=== PATIENT | female | born 1985 | race Caucasian/White ===

== ENCOUNTER → 2016-08-17 | Outpatient (CLI) | payer BC ==
[~2016-08-17] MED LIST: CYCL-319 PO; HYDR-3498 PO; IBUP-1542 PO
[2016-08-17 09:21] LABS: ADD SCAN DIFF NO
[2016-08-17 09:32] LABS: ADD UMIC YES; BASOPHILS % 0.2 % (0.0-2.0); EOSINOPHILS # 0.1 10^3/ul (0.0-0.5); EOSINOPHILS % 0.9 % (0.0-7.0); HEMATOCRIT 37.8 % (37.0-47.0); HEMOGLOBIN 12.5 g/dl (12.0-16.0); LYMPHOCYTES % 40.3 % (15.0-51.0); MEAN CORPUSCULAR HEMOGLOBIN 30.5 pg (29.0-33.0); MEAN CORPUSCULAR HGB CONC 33.1 g/dl (32.0-37.0); MEAN CORPUSCULAR VOLUME 92.2 fl (82.0-101.0); MEAN PLATELET VOLUME 9.5 fl (7.4-10.4); MONOCYTE # 0.6 10^3/ul (0.3-0.9); MONOCYTES % 5.6 % (0.0-11.0); NEUTROPHIL # 5.2 10^3/ul (1.6-7.5); NEUTROPHILS % 52.7 % (39.0-77.0); PLATELET COUNT 430 10^3/UL (140-415); RED CELL DISTRIBUTION WIDTH 13.5 % (11.5-14.5); URINE BILIRUBIN (Dip) 1+ (NEGATIVE); URINE BLOOD (Dip) 2+ (NEGATIVE); URINE COLOR YELLOW (YELLOW); URINE GLUCOSE (Dip) NEGATIVE (NEGATIVE); URINE KETONES (Dip) NEGATIVE (NEGATIVE); URINE LEUKOCYTE ESTERASE (Dip) NEGATIVE (NEGATIVE); URINE NITRITE (Dip) NEGATIVE (NEGATIVE); URINE TOTAL PROTEIN (Dip) TRACE (NEGATIVE); URINE UROBILINOGEN (Dip) 0.2 E.U./dL (0.1-1.0); WHITE BLOOD COUNT 9.8 10^3/ul (4.8-10.8)
[2016-08-17 09:50] LABS: ICTOTEST NEGATIVE (NEGATIVE); SQUAMOUS EPITHELIAL CELL,UR MODERATE
[2016-08-18 13:29] LABS: RUBELLA ANTIBODY - IGG 9.83 index
== END | disposition home or self-care (01) ==
LOC: LAB 08:58
PROVIDERS: ATTEND Obstetrics & Gynecology
DX: Z32.00 Encounter for pregnancy test, result unknown (principal)
CPT/HCPCS: 81001; 81003; 84439; 84443; 84481; 85025; 86592; 86703; 86762; 86803; 86850; 86900; 86901; 87340

== ENCOUNTER → 2016-09-28 | Outpatient (CLI) | payer BC ==
[2016-09-28 15:58] LABS: ALBUMIN 3.5 g/dl (3.3-4.9)
[2016-09-28 16:00] LABS: CREATININE 0.45 mg/dl (0.44-1.00)
[2016-09-28 16:01] LABS: ALBUMIN/GLOBULIN RATIO 1.02; CALCIUM 9.2 mg/dl (8.4-10.2); TOTAL PROTEIN 6.9 g/dl (6.1-8.1)
[2016-09-30 18:13] LABS: ANA SCREEN POSITIVE (NEGATIVE)
== END | disposition home or self-care (01) ==
LOC: LAB 15:31
PROVIDERS: ATTEND Obstetrics & Gynecology
DX: Z34.90 Encounter for supervision of normal pregnancy, unspecified, unspecified trimester (principal); R76.0 Raised antibody titer
CPT/HCPCS: 80053; 86038

== ENCOUNTER → 2016-12-15 | Outpatient (CLI) | payer BC ==
[2016-12-15 06:34] LABS: ALBUMIN 3.7 g/dl (3.3-4.9); TOTAL PROTEIN 6.8 g/dl (6.1-8.1)
[2016-12-18 12:10] LABS: CHENODEOXYCHOLIC ACID <0.5 umol/L (< OR = 3.1); CHOLIC ACID 1.2 umol/L (< OR = 1.8); DEOXYCHOLIC ACID <0.5 umol/L (< OR = 2.4); TOTAL BILE ACIDS <1.5 umol/L (< OR = 6.8)
== END | disposition home or self-care (01) ==
LOC: LAB 05:26
PROVIDERS: ATTEND Obstetrics & Gynecology Obstetrics
DX: K83.1 Obstruction of bile duct (principal)
CPT/HCPCS: 80076; 83789

== ENCOUNTER → 2016-12-17 | Outpatient (CLI) | payer BC ==
[2016-12-17 13:06] LABS: ADD SCAN DIFF NO
[2016-12-17 13:13] LABS: BASOPHILS % 0.1 % (0.0-2.0); EOSINOPHILS % 0.3 % (0.0-7.0); HEMATOCRIT 34.9 % (37.0-47.0); HEMOGLOBIN 11.6 g/dl (12.0-16.0); LYMPHOCYTES # 2.1 10^3/ul (0.8-2.9); LYMPHOCYTES % 21.3 % (15.0-51.0); MEAN CORPUSCULAR HEMOGLOBIN 30.9 pg (29.0-33.0); MEAN CORPUSCULAR HGB CONC 33.2 g/dl (32.0-37.0); MEAN CORPUSCULAR VOLUME 93.1 fl (82.0-101.0); MEAN PLATELET VOLUME 9.6 fl (7.4-10.4); MONOCYTE # 0.6 10^3/ul (0.3-0.9); MONOCYTES % 5.6 % (0.0-11.0); NEUTROPHIL # 7.3 10^3/ul (1.6-7.5); NEUTROPHILS % 72.2 % (39.0-77.0); PLATELET COUNT 331 10^3/UL (140-415); RED BLOOD COUNT 3.75 10^6/ul (4.20-5.40); RED CELL DISTRIBUTION WIDTH 13.4 % (11.5-14.5)
[2016-12-17 13:59] LABS: THYROID STIMULATING HORMONE 1.99 MIU/L (0.465-4.680)
== END | disposition home or self-care (01) ==
LOC: LAB 11:51
PROVIDERS: ATTEND Obstetrics & Gynecology
DX: O24.410 Gestational diabetes mellitus in pregnancy, diet controlled (principal)
CPT/HCPCS: 82950; 84443; 85025

== ENCOUNTER 2017-01-06 23:17 | Outpatient (CLI) | payer BC ==
[~2017-01-06] VITALS: Ht 157.5 cm; Wt 94.5 kg
[2017-01-06 23:48] VITALS: Ht 157.5 cm; Wt 94.5 kg
[2017-01-06 23:49] VITALS: BP 128/76; PULSE 107; RESP 18
[2017-01-06] MEDS ORDERED: PRENAT PO (23:53)
[2017-01-06] MEDS ORDERED: FERR325C PO (23:53)
[2017-01-07 01:01] LABS: ADD UMIC YES; UR ASCORBIC ACID NEGATIVE (NEGATIVE); UR BACTERIA FEW /HPF (NONE SEEN); UR BILIRUBIN (Dip) NEGATIVE (NEGATIVE); UR BLOOD (Dip) 1+ mg/dL (NEGATIVE); UR CLARITY CLEAR (CLEAR); UR COLOR YELLOW (YELLOW); UR GLUCOSE (Dip) NEGATIVE (NEGATIVE); UR KETONES (Dip) NEGATIVE (NEGATIVE); UR LEUKOCYTE ESTERASE (Dip) NEGATIVE Leu/ul (NEGATIVE); UR NITRITE (Dip) NEGATIVE (NEGATIVE); UR RBC 1 /HPF (0-5); UR SPECIFIC GRAVITY (Dip) 1.012 (1.003-1.030); UR SQUAMOUS EPITHELIAL CELL FEW /HPF (FEW); UR TOTAL PROTEIN (Dip) NEGATIVE (NEGATIVE); UR UROBILINOGEN (Dip) NEGATIVE (NEGATIVE)
--- NOTE | 2017-01-07 01:31 | RADRPT ---
PROCEDURE: Obstetrical ultrasound, limited. CLINICAL INDICATION: Pelvic pain. TECHNIQUE: Multiple sonographic images of the pelvis were obtained using transabdominal technique . Images were obtained with adame scale and color Doppler. The images were reviewed on a PACS works tation. COMPARISON: No prior studies are available for comparison. FINDINGS: There is a single living intrauterine gestation with the fetus in a breech presentation. hear t tones of 131 beats per minute are identified. The placenta is anterior in location, grade 1-2. Th ere is no evidence of placenta previa or abruption. Measurements were made in order to determine age. The results are as follows: BPD =8.59 cm HC =31.62 cm AC =30.43 cm FL =6.54 cm. Estimated gestational age of approximately 34 weeks and 4 days. The estimated date of delivery is 02/14/2017. The EFW = 2406 +/- 361 grams. Estimated weight percentage equals >97%. IMPRESSION: Single viable intrauterine gestation of approximately 34 weeks and 4 days, with an ultrasound LEXI of 02/14/2017. .Rome Soria MD, MD Date Time Electronically viewed and signed by .Rome Soria MD, MD on 01/07/2017 01:30 .T/
--- NOTE | 2017-01-07 01:32 | RADRPT ---
PROCEDURE: Biophysical profile. CLINICAL INDICATION: Pelvic pain. TECHNIQUE: Multiple sonographic images of the pelvis were obtained with transabdominal technique. Transvaginal evaluation of the cervix was also performed. COMPARISON: No prior studies are available for comparison. FINDINGS: There is a single living intrauterine gestation with the fetus in a breech position. The placenta i s anterior in location, grade 1 to 2. heart tones of 139 beats per minute are identified. The re is normal amniotic fluid volume with an ADRIANA of 14.1 cm. The cervix is closed measuring 4.4 cm. breathing movements = 2 Gross body movements = 2 tone = 2 Qualitative AFV = 2 IMPRESSION: Biophysical profile 8 out of 8. .Rome Soria MD, Date Time Electronically viewed and signed by .Rome Soria MD, on 01/07/2017 01:31 .T/
--- NOTE | 2017-01-07 02:59 | TRIAGE ---
OB Triage Datetime Report Generated by CPN: 01/07/2017 02:59 Datetime: 01/07/2017 01:55 Stage of : OB Triage Stage of : OB Triage Labor Evaluation Frequency: none Monitor Mode: External Pattern: Normal: <= 5 Contractions in 10 Minutes Resting Tone [place]: Relaxed Heart Rate FHR Baseline Rate: 130 Monitor Mode: External US Variability: Moderate 6-25 bpm Accelerations: Prolonged Decelerations: None Category: Category I Pain Assessment Pain Scale: 0 Pain Presence: None/Denies Pain Type: N/A Pain Relief Measures: Comfort Measures Datetime: 01/07/2017 01:48 Stage of : OB Triage Datetime: 01/07/2017 01:21 Stage of : OB Triage Monitor Mode: External US Datetime: 01/07/2017 01:20 Stage of : OB Triage Monitor Mode: External US Datetime: 01/07/2017 01:01 Stage of : OB Triage Labor Evaluation Frequency: NONE Monitor Mode: External Pattern: Normal: <= 5 Contractions in 10 Minutes Resting Tone [place]: Relaxed Heart Rate FHR Baseline Rate: 130 Monitor Mode: External US Variability: Moderate 6-25 bpm Accelerations: 15X15 Decelerations: None Category: Category I Pain Assessment Pain Scale: 0 Pain Presence: None/Denies Pain Type: N/A Pain Relief Measures: Comfort Measures Datetime: 01/07/2017 00:49 Stage of : OB Triage Monitor Mode: External Monitor Mode: External US Datetime: 01/07/2017 00:19 Stage of : OB Triage Vaginal Exam Pool: Positive Datetime: 01/06/2017 23:58 Stage of : OB Triage Assessment Type: Triage Maternal Assessment Level of Consciousness: Fully Conscious DTR's/Clonus: DTRs 2+; No Clonus Headache: Denies Blurred Vision: No Respiratory Effort: Unlabored; Regular Rhythm; Equal Expansion Breath Sounds, Left: Clear and Equal Breath Sounds, Right: Clear and Equal Nausea/Vomiting: Denies RUQ Epigastric Pain: Denies Lower Extremities Edema: None Degree: None Upper Extremities Edema: None Degree: None Facial Edema: None Temperature Route: Oral Fall Risk Assessment History of Falling: (0) No Secondary Diagnosis: (0) No Ambulatory Aid: (0) Bedrest/Nurse Assist IV Therapy: (0) No Gait: (0) Normal/Bedrest/Immobile Mental Status: (0) Oriented to Own Ability Fall Score: 0 Fall Risk Score Definition: No Risk: No action required Labor Evaluation Frequency: NONE Monitor Mode: External Pattern: Normal: <= 5 Contractions in 10 Minutes Resting Tone [place]: Relaxed Heart Rate FHR Baseline Rate: 135 Monitor Mode: External US Variability: Moderate 6-25 bpm Accelerations: 15X15 Decelerations: None Category: Category I Pain Assessment Pain Scale: 0 Pain Presence: None/Denies Pain Type: N/A Pain Relief Measures: Comfort Measures Datetime: 01/06/2017 23:54 Time of Arrival: 01/06/2017 23:20 EGA: 31.6 Arrived By: Ambulatory Arrived From: Other Unit in Hospital Movement: Present Contractions: Denies/Absent Rupture of Membranes: Unsure Vaginal Discharge: Denies Recent Sexual Intercouse: Yes Abdominal Trauma: Not Applicable Patient Complaints: Other Additional Patient Complaints: LEAKING ON Wednesday01/03/17 @ 1600 Time Provider Notified: 01/07/2017 00:05 Provider Notified: Initial Plan: [facility]
--- NOTE | 2017-01-07 06:14 | PN ---
Triage Information Date/Time January 07, 2017 : 2 Para: 0 Diabetes: none Hypertention: none Additional information 31-year-old with IUP at 31 weeks and 6 days presented with complaint of leaking of fluid. Denies any decreased movement uterine contractions denies any compensation during her course.. Objective Vital Signs Date Time Temp Pulse Resp B/P Pulse Ox O2 Delivery O2 Flow Rate FiO2 01/06/17 23:49 98.2 107 18 128/76 Room Air Heart Rate: 130's Contractions: None Exam General appearance: Alert and oriented 4. Does not appear to be in any acute distress Abdomen: Soft, gravid, fundal height consistent with gestational age, nontender NST: Category 1 Speculum examination: Negative pooling negative nitrazine, R OM test negative, ADRIANA: Normal Cervical length: 4.4 cm Results/Medications Results 24 hrs Laboratory Tests Test 01/06/17 23:30 01/07/17 00:20 Urine Color YELLOW Urine Clarity CLEAR Urine pH 7.0 Urine Specific [place] 1.012 Urine Ketones NEGATIVE Urine Nitrite NEGATIVE Urine Bilirubin NEGATIVE Urine Urobilinogen NEGATIVE Urine Leukocyte Esterase NEGATIVE Urine Microscopic RBC 1 Urine Microscopic WBC 0 Urine Squamous Epithelial Cells FEW Urine Bacteria FEW A Urine Hemoglobin 1+ H Urine Glucose NEGATIVE Urine Total Protein NEGATIVE Membranes Rupture NEGATIVE Assessment/Plan IUP at 31 weeks and 6 days No evidence of PPROM or labor adequate ADRIANA Likely urinary leak labor precaution and kick count discussed Follow-up with primary OB in 24-48 hours Return to triage as needed any other problem FUNMI MAYBERRY MD Jan 07, 2017 06:14
== END 2017-01-07 02:05 | disposition home or self-care (01) ==
LOC: OBT 23:17 → L-D 23:20 → OBT 01-07 02:05
PROVIDERS: ATTEND Obstetrics & Gynecology
DX: O41.93X0 Disorder of amniotic fluid and membranes, unspecified, third trimester, not applicable or unspecified (principal); Z3A.31 31 weeks gestation of pregnancy
CPT/HCPCS: 76815; 76817; 76818; 81001; 84112; G0463

== ENCOUNTER → 2017-01-09 | Outpatient (CLI) | payer BC ==
[~2017-01-09] MED LIST changes: -CYCL-319 PO; +FERR325C PO; -HYDR-3498 PO; -IBUP-1542 PO; +PRENAT PO
== END | disposition home or self-care (01) ==
LOC: LAB 09:42
PROVIDERS: ATTEND Obstetrics & Gynecology
DX: O24.419 Gestational diabetes mellitus in pregnancy, unspecified control (principal); Z3A.00 Weeks of gestation of pregnancy not specified
CPT/HCPCS: 82951

== ENCOUNTER 2017-03-02 17:13 | Inpatient (IN) | payer BC ==
[~2017-03-02] VITALS: Ht 154.9 cm; Wt 102.7 kg
[2017-03-02 17:59] VITALS: Ht 154.9 cm; Wt 102.7 kg
[2017-03-02 18:00] VITALS: BP 140/84; PULSE 82; RESP 20
[2017-03-02] MEDS ORDERED: LACTATED RINGER'S 1,000 ML IV SCH (18:05)
[2017-03-02] MEDS ORDERED: LACTATED RINGER'S 1,000 ML IV ONE (18:20)
[2017-03-02] MEDS ORDERED: OXYTOCIN 30 UNITS/LR 500 ML IV SCH (18:30)
[2017-03-02] MEDS ORDERED: METHYLERGONOVINE 0.2 MG INJ IM PRN ×2 (18:30→23:00)
[2017-03-02] MEDS ORDERED: MISOPROSTOL 200 MCG TAB PR PRN ×2 (18:30→23:00)
[2017-03-02] MEDS ORDERED: CARBOPROST 250 MCG INJ IM PRN ×2 (18:30→23:00)
[2017-03-02] MEDS ORDERED: METOCLOPRAMIDE 10 MG INJ IV ONE (18:30)
[2017-03-02] MEDS ORDERED: CEFAZOLIN 2 GM/50 ML (PMX) 50 ML IV SCH (18:30)
[2017-03-02] MEDS ORDERED: OXYTOCIN 30 UNITS/LR 500 ML IV PRN ×2 (18:30→23:00)
[2017-03-02] MEDS ORDERED: CITRIC ACID/NA CITRATE 30 ML CUP PO ONE (18:30)
[2017-03-02] MEDS ORDERED: FAMOTIDINE 20 MG INJ IV ONE (18:30)
[2017-03-02 18:48] LABS: BASOPHILS % 0.1 % (0.0-2.0); EOSINOPHILS # 0.1 10^3/ul (0.0-0.5); EOSINOPHILS % 0.6 % (0.0-7.0); HEMATOCRIT 36.6 % (37.0-47.0); HEMOGLOBIN 12.1 g/dl (12.0-16.0); LYMPHOCYTES # 2.9 10^3/ul (0.8-2.9); LYMPHOCYTES % 33.2 % (15.0-51.0); MEAN CORPUSCULAR HEMOGLOBIN 30.1 pg (29.0-33.0); MEAN CORPUSCULAR HGB CONC 33.1 g/dl (32.0-37.0); MEAN PLATELET VOLUME 11.1 fl (7.4-10.4); MONOCYTE # 0.6 10^3/ul (0.3-0.9); MONOCYTES % 7.2 % (0.0-11.0); NEUTROPHIL # 5.1 10^3/ul (1.6-7.5); NEUTROPHILS % 58.6 % (39.0-77.0); PLATELET COUNT 292 10^3/UL (140-415); RED BLOOD COUNT 4.02 10^6/ul (4.20-5.40); RED CELL DISTRIBUTION WIDTH 15.1 % (11.5-14.5); WHITE BLOOD COUNT 8.7 10^3/ul (4.8-10.8)
[2017-03-02 19:04] LABS: INR 0.85; PROTIME 11.6 Sec (12.2-14.2); PT RATIO 0.9
[2017-03-02 19:05] LABS: PARTIAL THROMBOPLASTIN TIME 25.9 Sec (25.0-35.0)
[2017-03-02] MEDS ORDERED: FENTAnyl 50 MCG/ML VIAL ONE (20:53)
[2017-03-02] MEDS ORDERED: morphine SULFATE/PF (10 MG/10 ML) INJ ONE (20:53)
[2017-03-02] MEDS ORDERED: PHENYLephrine (100 MCG/ML) 5ML SYG ONE ×2 (21:07→21:36)
[2017-03-02] MEDS ORDERED: FENTAnyl 50 MCG/ML VIAL IV PRN (21:30)
[2017-03-02] MEDS ORDERED: MEPERIDINE 25 MG INJ IV PRN (21:30)
[2017-03-02] MEDS ORDERED: KETOROLAC 30 MG INJ IV PRN (21:30)
[2017-03-02] MEDS ORDERED: PROCHLORPERAZINE 10 MG INJ IV PRN (21:30)
[2017-03-02] MEDS ORDERED: DIPHENHYDRAMINE 50 MG INJ IV PRN ×2 (21:30→23:00)
[2017-03-02] MEDS ORDERED: ONDANSETRON 4 MG INJ IV PRN ×2 (21:30→23:00)
[2017-03-02] MEDS ORDERED: ONDANSETRON 4 MG INJ ONE (21:31)
[2017-03-02] MEDS ORDERED: OXYTOCIN 30 UNITS/LR 500 ML IV ONE (21:36)
[2017-03-02] MEDS ORDERED: EPHEDrine SULFATE 50 MG/5 ML SYG ONE (21:36)
--- NOTE | 2017-03-02 22:50 | HP ---
Date/Time of Note Date/Time of Note DATE: 03/02/17 TIME: 22:45 OB - History Hx of Present Free Text/Dictation 31 y.o. A1 with an IUP at 39w 5d, baby is over 8#, cervix is thick, closed and the head is floating and the patient is requesting an elective . Last Menstrual Period: May 28, 2016 Estimated Due Date: Mar 04, 2017 : 2 Para: 0 Spontaneous : 1 Care: Good Care Ultrasounds: Normal mid trimester US Obstetrical Complications: Gestational Diabetes (diet controlled only) Medical Complications: Respiratory (asthma), Gastrointestinal (GERD, gallstones ) Past Family/Social History * Past Medical, Surgical, Family and Obstetric Histories reviewed from chart. Blood Type: A+ Rubella: immune RPR/VDRL: Negative GBS Status: Negative HBsAG: Negative OB Admission Exam Vital Signs Vital Signs Vital Signs Date Time Temp Pulse Resp B/P Pulse Ox O2 Delivery O2 Flow Rate FiO2 03/02/17 18:00 98.9 82 20 140/84 Room Air Physical Exam HEENT: WNL Heart: Rhythm Normal Lungs: Clear Abdomen: WNL Extremities: Edema (2+) Reflexes: Normal Cervical Dilatation: None Effacement: 0% Station: Ballotable Membranes: Intact Heart Rate: 150's Accelerations: Accelerations Present Decelerations: No Decelerations Varibility: Moderate Contractions on Admission: >10 Minutes Apart Last 72 hours Lab Results CBC & BMP 03/02/17 18:10 OB Assessment/Plan Reason for admission: section Other Assessment: Elective Plan: Section VIVIANE LEONG MD Mar 02, 2017 22:50
[2017-03-02] MEDS: HYDROmorphONE (0.2 MG/ML) 10ML SYG IV PRN (22:55)
[2017-03-02] MEDS ORDERED: NALOXONE (0.4 MG/ML) INJ IV PRN (23:00)
[2017-03-02] MEDS ORDERED: LANOLIN 7 GM TUBE TOP PRN (23:00)
[2017-03-02] MEDS ORDERED: HYDROmorphONE 1 MG/ML SYG IV PRN (23:00)
[2017-03-02] MEDS ORDERED: ZOLPIDEM 5 MG TAB PO PRN (23:00)
[2017-03-02] MEDS ORDERED: NALBUPHINE HCL (10 MG/1 ML) INJ IV PRN (23:00)
--- NOTE | 2017-03-02 23:04 | OPR ---
Operative Report Planned Procedure Procedure date Mar 02, 2017 Procedure(s) Primary section Performed by see signature line Assisting provider: EDELMIRA SPAIN MD Anesthesiologist: BOBBY CHAMORRO MD Anesthesia Type: spinal Procedure Description Under satisfactory spinal anesthesia, the patient was prepped and draped and placed in a supine position, tilted to the left. A Pfannenstiel incision was made, carried through the subcutaneous tissue. Bleeders were brought under control with electrocautery. The fascia was incised to the length of the incision. The rectus muscles were from the overlying fascia, divided midline. The peritoneum was exposed, and entered using the surgeon's fingers. Exploration of abdomen revealed gravid uterus. The bladder flap was developed. A transverse incision was made in the lower segment of the uterus. The amniotic sac ruptured. Clear amniotic fluid noted. The head was elevated through the incision and, with gentle fundal pressure, the baby was easily delivered. Nasal oropharyngeal suction was performed. The baby was brought to the team for immediate attention. The placenta was delivered manually intact. The uterus was wrapped in a moist lap and then the uterine cavity was cleaned with dry sponge. The uterus was closed in 2 layers using #1 chromic suture in continuous locking fashion. Excellent hemostasis was noted and the uterus was replaced back into the abdomen. The peritoneal cavity was irrigated with warm saline. Sponge, needle and instrument count were reported to be correct. The abdominal peritoneum was closed with 2-0 chromic.continuously. The rectus muscles were approximated with the same suture. The fascia was closed with 0 Vicryl from each lateral edge to the midline with overlap at the midline , the subcutaneous layer was closed with 2-0 chromic and the skin was then closed with 3-0 Monocryl in a subcuticular stitch. Estimated blood loss 500 mL. Urine was noted to be clear. The final count was again complete. Post-Procedure Post-procedure diagnosis Elective term section. Findings: Viable baby girl weighing 3750 grams, or 8# 4 oz, 19.5" long and with Apgars of 8/9. Estimated blood loss: other (500 cc) Specimen(s): no Grafts/Implants: no Complication(s): no Pt Condition post procedure: stable Disposition: PACU Physician Certification I, the undersigned physician, hereby certify that I have discussed the procedure described in this consent form with this patient (or the patient's legal area representative), including: * The risk and benefits of the procedure; * Any adverse reactions that may reasonably be expected to occur; * Any alternative efficacious methods of treatment which may be medically viable ; * The potential problems that may occur during recuperation; * Potential for blood transfusion and associated risks/benefits; and * Any research or economic interest I may have regarding this treatment. I further certify that the patient/legally responsible person was encouraged to ask question and that all questions were answered. VIVIANE LEONG MD Mar 02, 2017 23:04
[2017-03-03] VITALS (7 sets, daily range): BP systolic 116–123; BP diastolic 66–74; PULSE 72–107; RESP 16–19
[2017-03-03] MEDS: HYDROmorphONE (0.2 MG/ML) 10ML SYG IV PRN (00:55)
[2017-03-03] MEDS: LACTATED RINGER'S 1,000 ML IV SCH ×3 (01:20→14:02)
[2017-03-03] MEDS: HYDROmorphONE 1 MG/ML SYG IV PRN ×5 (03:53→20:14)
[2017-03-03] MEDS: KETOROLAC 30 MG INJ IV PRN ×3 (06:00→17:47)
[2017-03-03 11:27] LABS: BASOPHILS % 0.2 % (0.0-2.0); EOSINOPHILS % 0.3 % (0.0-7.0); HEMATOCRIT 31.4 % (37.0-47.0); LYMPHOCYTES # 2.9 10^3/ul (0.8-2.9); LYMPHOCYTES % 26.5 % (15.0-51.0); MEAN CORPUSCULAR HEMOGLOBIN 29.8 pg (29.0-33.0); MEAN CORPUSCULAR HGB CONC 31.8 g/dl (32.0-37.0); MEAN CORPUSCULAR VOLUME 93.5 fl (82.0-101.0); MEAN PLATELET VOLUME 10.6 fl (7.4-10.4); MONOCYTE # 0.8 10^3/ul (0.3-0.9); MONOCYTES % 7.2 % (0.0-11.0); NEUTROPHIL # 7.2 10^3/ul (1.6-7.5); NEUTROPHILS % 65.3 % (39.0-77.0); PLATELET COUNT 220 10^3/UL (140-415); RED BLOOD COUNT 3.36 10^6/ul (4.20-5.40); RED CELL DISTRIBUTION WIDTH 15.1 % (11.5-14.5); WHITE BLOOD COUNT 11.1 10^3/ul (4.8-10.8)
[2017-03-03] MEDS ORDERED: OXYCODONE/ACETAMINOPHEN (5/325) TAB PO PRN (21:05)
[2017-03-03] MEDS: IBUPROFEN 800 MG TAB PO SCH (21:52)
--- NOTE | 2017-03-03 23:44 | QN ---
Documentation Comment Progress Note POD #1 Pt doing very well and has excellent pain management. + flatus. Tolerating a regular diet. No BM yet. Has already gotten up to a chair. Is well. T=98.5 BP 120/68 Fundus firm and at the umbilicus. Dressing is clean, dry and intact. Lochia minimal. Ext 2+ edema. Flores in place. A: S/P primary . Stable. P: Continue care. D/C flores in AM, per pt request. Advance pain meds as ordered. VIVIANE LEONG MD Mar 03, 2017 23:44
[2017-03-04] MEDS: LACTATED RINGER'S 1,000 ML IV SCH (00:44)
[2017-03-04] MEDS: OXYCODONE/ACETAMINOPHEN (5/325) TAB PO PRN ×3 (01:53→10:11)
[2017-03-04] MEDS: IBUPROFEN 800 MG TAB PO SCH ×3 (05:30→22:03)
[2017-03-04 05:41] VITALS: BP 116/63; PULSE 88; RESP 19
[2017-03-04 08:05] VITALS: BP 119/79; PULSE 91; RESP 20
[2017-03-04] MEDS ORDERED: HYDROCODONE/APAP (5/325) TAB PO PRN (14:30)
[2017-03-04] MEDS: HYDROCODONE/APAP (5/325) TAB PO PRN ×2 (14:48→20:57)
[2017-03-04 16:30] VITALS: BP 138/95; PULSE 88; RESP 16
[2017-03-04 17:00] VITALS: BP 133/80
[2017-03-04 20:57] VITALS: BP 139/89; PULSE 92; RESP 18
--- NOTE | 2017-03-04 21:19 | QN ---
Documentation Comment POD #2 Pt feeling well with better pain control after the change to [place]. Had a shower and dressing was removed. 133/80 T=98.9 Inc: C/D/I. Lochia minimal Ext NT, no edema. P: Continue care and plan d/c for tomorrow. VIVIANE LEONG MD Mar 04, 2017 21:19
[2017-03-05] MEDS: HYDROCODONE/APAP (5/325) TAB PO PRN ×3 (01:12→09:06)
[2017-03-05 03:58] VITALS: BP 134/76; PULSE 82; RESP 18
[2017-03-05] MEDS: IBUPROFEN 800 MG TAB PO SCH ×2 (06:09→12:14)
[2017-03-05] MEDS ORDERED: DIPHTH/TET/ACEL PERTUSS (ADULT) 0.5 ML VIAL IM* ONE (09:00)
[2017-03-05 09:06] VITALS: BP 130/73; PULSE 18; PULSE 78; RESP 20
--- NOTE | 2017-03-05 12:30 | PD.PPDC ---
CUTTER HAND Discharge Instruction Condition Patient Condition: Good Diet Diet: Resume Regular Diet Activity/Restrictions Activity: Bedrest May be up to bathroom May be up for meals May Shower Restrictions: No Exercising No Lifting No Driving Minimize Walking Minimize Stair-climbing No Sexual Activity Nothing in the Vagina No [place] No Tampons, douche Wound/Drain Care Instructions Wound/Drain Care Instructions: Remove Steri Strips in 2 weeks Keep clean and dry Follow-up Follow-up with Physician: 2 Return to clinic for TECHNOLOGY [facility] TEACHER Instructions: Fever greater than 101 Chills Worsening abdominal pain Excessive Vaginal Bleeding OB Instructions: Breast Tenderness Depression Surgical Instructions: Incisional Drainage Incisional Redness VIVIANE LEONG MD Mar 05, 2017 12:30
[2017-03-05] MEDS ORDERED: IBUP800T25 PO (12:32)
[2017-03-05] MEDS ORDERED: HYDR-3498 PO (12:32)
--- NOTE | 2017-03-05 12:34 | DS ---
Date/Time of Note Date/Time of Note DATE: 03/05/17 TIME: 12:33 Obstetrical Discharge Record Final Diagnosis Final Diagnosis: Term delivered Other Final Diagnosis elective Section Section: Primary Primary Indication Elective Complications Gestational Diabetes Augmentation: No Induction: No Condition on Discharge Physical Assessment Last Vitals: T=98.3 BP 130/73 Voiding: Yes Bowel Movement: Yes Breast: Filling Fundus: Firm Abdomen and Incision: Clean, intact and dry with steristrips in place. Calf Tenderness: No Patient Condition: Good VIVIANE LEONG MD Mar 05, 2017 12:34
== END 2017-03-05 12:55 | disposition home or self-care (01) | DRG 766 ==
LOC: L-D 17:13 → PP1 03-03 01:10 → EDSTATUS 03-04 17:12
PROVIDERS: ADMIT Obstetrics & Gynecology; ATTEND Obstetrics & Gynecology
PROC: 10D00Z1 Extraction of Products of Conception, Low, Open Approach (ICD-10-PCS; principal; 2017-03-02 21:30)
DX: O32.4XX0 Maternal care for high head at term, not applicable or unspecified (principal); O24.420 Gestational diabetes mellitus in childbirth, diet controlled; Z3A.39 39 weeks gestation of pregnancy; Z37.0 Single live birth
CPT/HCPCS: 85025; 85610; 85730; 86592; 86850; 86900; 86901; 90715; 94760; 99464; J0690; J1170; J1200; J1885; J2175; J2274; J2370; J2405; J2590; J2765; J3010; J7120

== ENCOUNTER 2018-01-05 23:41 | Emergency (ER) | END 2018-01-06 01:36 | disposition home or self-care (01) ==

== ENCOUNTER 2018-08-09 01:35 | Emergency (ER) | payer BC ==
[~2018-08-09] VITALS: Ht 156.2 cm; Wt 95.1 kg
[~2018-08-09 01:35] MED LIST changes: +HYDR-3601 PO; +IBUP-1542 PO; +IBUP-1544 PO; +TRAM50TA2 PO
[2018-08-09 01:36] VITALS: Ht 156.2 cm; Wt 95.1 kg
[2018-08-09] MEDS ORDERED: ONDANSETRON 4 MG INJ IV STA (02:02)
[2018-08-09] MEDS ORDERED: KETOROLAC 30 MG INJ IV STA (02:02)
[2018-08-09] MEDS ORDERED: IBUP-1542 PO (04:07)
[2018-08-09] MEDS ORDERED: HYDR-4011 PO (04:08)
[2018-08-09] MEDS ORDERED: ONDA4TAB14 PO (04:08)
--- NOTE | 2018-08-09 04:14 | ERD ---
ER Documentation Chief Complaint Chief Complaint RUQ AP [id number]. +NAUSEA PATIENT IS L&D NURSE UPSTAIRS. HPI Patient is a 33-year-old female with a history of gallstones presents ER for concerns of right upper quadrant pain times 15 minutes. 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 She states the pain became worse after eating. Patient reports nausea and vomiting. Patient denies any fevers or chills. Patient denies any dysuria, frequency, urgency or hematuria. Patient states she is having menstrual spotting currently. Patient denies any chest pain, shortness of breath, left upper extremity pain or LOC. ROS All systems reviewed and are negative except as per history of present illness. Medications Home Meds Active Scripts Ondansetron (Ondansetron Odt) 4 Mg Tab.rapdis, 4 MG PO Q6H PRN for NAUSEA AND/OR VOMITING, #10 TAB Prov:ROYCE MARTINEZ PA-C 08/09/18 Hydrocodone/Acetaminophen ([place] 5-325 Tablet) 1 Each Tablet, 1 TAB PO Q6H PRN for PAIN, #7 TAB Prov:ROYCE MARTINEZ PA-C 08/09/18 Ibuprofen* (Motrin*) 600 Mg Tab, 600 MG PO Q6, #30 TAB Prov:ROYCE MARTINEZ PA-C 08/09/18 Tramadol HCl (Tramadol HCl) 50 Mg Tablet, 50 MG PO Q6 PRN for SEVERE PAIN LEVEL 7-10, #20 TAB Prov:ALEN LOPEZ NP 01/06/18 Ibuprofen* (Motrin*) 600 Mg Tab, 600 MG PO Q6H PRN for PAIN AND OR ELEVATED TEMP, #30 TAB Prov:ALEN LOPEZ NP 01/06/18 Ibuprofen* (Ibuprofen*) 800 Mg Tablet, 800 MG PO Q8, #30 TAB Prov:VIVIANE LEONG MD 03/05/17 Hydrocodone Bit-Acetaminophen (Hydrocodone Bit-APAP) 5-325MG Tablet, 1 TAB PO Q4H PRN for PAIN, #30 TAB Prov:VIVIANE LEONG MD 03/05/17 Reported Medications Ferrous Sulfate (Iron) 325 Mg Capsule.er, 325 MG PO, CAP 01/06/17 Multivit/Min/Fol Ac/Iron/Pren* ( S*) 1 Tab Tab, 1 TAB PO DAILY, TAB 01/06/17 Allergies Allergies: Coded Allergies: No Known Allergy (Unverified , 08/09/18) PMhx/Soc History of Surgery: Yes (C SEC X 1 ) Anesthesia Reaction: No Hx Neurological Disorder: No Hx Respiratory Disorders: Yes (ASTHMA) Hx Cardiac Disorders: No Hx Psychiatric Problems: No Hx Miscellaneous Medical Probl: Yes (HX GALLSTONES ; POSTPONED SURGERY ) Hx Alcohol Use: No Hx Substance Use: No Hx Tobacco Use: No Smoking Status: Never smoker FmHx Family History: No diabetes Physical Exam Vitals Vital Signs Date Temp Pulse Resp B/P (MAP) Pulse Ox O2 O2 Flow FiO2 Time Delivery Rate 08/09/18 97.5 107 22 144/88 99 01:36 (106) Physical Exam GENERAL: Well-developed, well-nourished female. Appears uncomfortable secondary to pain. HEAD: Normocephalic, atraumatic. EYES: Pupils are equally reactive bilaterally. EOMs grossly intact. No conjunctival erythema. ENT: Moist mucous membranes. No uvula deviation. No kissing tonsils. NECK: Supple. No meningismus. Normal range of motion of the neck. LUNG: Clear to auscultation bilaterally. No rhonchi, wheezing, rales or coarse breath sounds. HEART: Regular rate and rhythm. No murmurs, rubs or gallops. ABDOMEN: Soft, nondistended. Tender to palpation in the right upper quadrant. Positive bowel sounds in all four quadrants. No rebound tenderness, no guarding. (-) McBurney's point tenderness. No CVA tenderness. EXTREMITIES: Equal pulses bilaterally. No peripheral clubbing, cyanosis or edema. No unilateral leg swelling. NEUROLOGIC: Alert and oriented. Moving all four extremities without any difficulty. Normal speech. Steady gait. SKIN: Normal color. Warm and dry. No rashes or lesions. Result Diagram: 08/09/1824208/09/18 0243 Results 24 hrs Laboratory Tests Test 08/09/18 02:43 08/09/18 03:43 08/09/18 03:59 08/09/18 04:00 White Blood Count 11.4 10^3/ul Red Blood Count 4.41 10^6/ul Hemoglobin 12.9 g/dl Hematocrit 40.1 % Mean Corpuscular 90.9 fl Volume Mean Corpuscular 29.3 pg Hemoglobin Mean Corpuscular 32.2 g/dl Hemoglobin Concen t Red Cell 12.7 % Distribution Width Platelet Count 402 10^3/UL Mean Platelet 9.5 fl Volume Immature 0.300 % Granulocytes % Neutrophils % 74.4 % Lymphocytes % 20.1 % Monocytes % 4.8 % Eosinophils % 0.1 % Basophils % 0.3 % Nucleated Red 0.0 /100WBC Blood Cells % Immature 0.040 10^3/ul Granulocytes # Neutrophils # 8.5 10^3/ul Lymphocytes # 2.3 10^3/ul Monocytes # 0.6 10^3/ul Eosinophils # 0.0 10^3/ul Basophils # 0.0 10^3/ul Nucleated Red 0.0 10^3/ul Blood Cells # Sodium Level 139 mmol/L Potassium Level 4.4 mmol/L Chloride Level 105 mmol/L Carbon Dioxide 25 mmol/L Level Anion Gap 9 Blood Urea 9 mg/dl Nitrogen Creatinine 0.47 mg/dl Est Glomerular > 60 mL/min Filtrat Rate mL/min Glucose Level 112 mg/dl Calcium Level 9.8 mg/dl Total Bilirubin 0.0 mg/dl Direct Bilirubin 0.00 mg/dl Indirect 0.0 mg/dl Bilirubin Aspartate Amino 33 IU/L Transf (AST/SGOT) Alanine 30 IU/L Aminotransferase (ALT/SGPT) Alkaline 98 IU/L Phosphatase Total Protein 7.2 g/dl Albumin 4.1 g/dl Globulin 3.10 g/dl Albumin/Globulin 1.32 Ratio Lipase 132 U/L Urine Color RED Urine Clarity CLEAR Urine pH 7.0 Urine Specific 1.003 [place] Urine Ketones NEGATIVE mg/dL Urine Nitrite NEGATIVE mg/dL Urine Bilirubin NEGATIVE mg/dL Urine NEGATIVE mg/dL Urobilinogen Urine Leukocyte NEGATIVE Julio/ul Esterase Urine Microscopic 1 /HPF RBC Urine Microscopic 1 /HPF WBC Urine Squamous FEW /HPF Epithelial Cells Urine Bacteria FEW /HPF Urine Hemoglobin 2+ mg/dL Urine Glucose NEGATIVE mg/dL Urine Total NEGATIVE mg/dl Protein Bedside Urine pH 5.5 (LAB) Bedside Urine Negative Protein (LAB) Bedside Urine Negative Glucose (UA) Bedside Urine Negative Ketones (LAB) Bedside Urine 1+ Blood Bedside Urine Negative Nitrite (LAB) Bedside Urine Negative Leukocyte Esteras e (L POC Beta HCG, NEGATIVE Qualitative Current Medications Medications Dose Sig/Valarie Start Time Status Last (Trade) Ordered Route PRN Stop Time Admin Dose Reason Admin Ondansetron 4 mg ONCE STAT 08/09/18 DC HCl (Zofran IV 02:02 Inj) 08/09/18 02:03 Ketorolac 30 mg ONCE STAT 08/09/18 DC Tromethamine IV 02:02 (Toradol) 08/09/18 02:03 Procedures/MDM ED COURSE: The patient was stable throughout ED course. I kept the patient and/or family informed of laboratory and diagnostic imaging results throughout the ED course. DIAGNOSTIC IMAGING: Read by radiologist. DIAGNOSTIC IMAGING REPORT Patient: NICHOLAS MORGAN : 1985 Age: 33 Sex: F MR #: [id number] DOS: 08/09/18 0202 Ordering MD: ROYCE MARTINEZ PA-C Location: [facility] Room/Bed: PROCEDURE: US Abdomen. CLINICAL INDICATION: Right upper quadrant pain TECHNIQUE: Multiple real-time images were acquired of the patient's abdomen and retroperitoneum utilizing a high resolution transducer. COMPARISON: None FINDINGS: There is multiple gallstones present. The gallbladder wall is of normal thickness without pericholecystic fluid. Common bile duct normal limits in size maximal transverse diameter 4.49 mm. No intrahepatic biliary ductal dilation. Pancreas could not be visualized due to overlying bowel gas. Liver mildly enlarged maximal sagittal dimension 16 cm. No focal hepatic lesions. Right kidney normal in size maximal sagittal dimension 10.01 cm. Normal renal parenchymal echogenicity without hydronephrosis calculus or mass. Normal portal venous flow. IMPRESSION: 1. Multiple gallstones without pericholecystic fluid or gallbladder wall thickening. 2. No biliary ductal dilation. 3. Unremarkable liver and right kidney. 4. Nonvisualization of the pancreas. RPTAT:AAJJ Physician Alexander Date Time Electronically viewed and signed by Physician Alexander on 08/09/2018 02:46 BM/ CC: ROYCE MARTINEZ PA-C [id number] PROCEDURES: None. MEDICATIONS GIVEN: IV Zofran, Toradol Patient tolerated medication well with no adverse reactions. Patient reported improvement in pain. MEDICAL DECISION MAKING: This is a 33-year-old female presents ER for concerns of right upper quadrant pain which started prior to arrival. Patient has a history of gallstones.. Vital signs were reviewed. Patient is afebrile. IV line was established. Blood work was obtained. CBC showed no evidence of systemic infection or severe anemia. CMP showed no evidence of electrolyte abnormalities, severe acidosis, alkalosis, renal failure, or liver disease. Lipase showed no evidence of acute pancreatitis. Urine test is negative. UA did show 2+ hemoglobin, however patient states she is currently menstrual spotting. Gallbladder ultrasound showed 1. Multiple gallstones without pericholecystic fluid or gallbladder wall thickening. 2. No biliary ductal dilation. 3. Unremarkable liver and right kidney. 4. Nonvisualization of the pancreas. Upon reexamination, patient did report improvement in symptoms. At this time, patient presentation most consistent with biliary colic secondary to gallstones patient was advised to follow-up with a general surgeon on outpatient basis. Referral information provided. Differential diagnoses include but was not limited to yumi coronary syndrome, AAA, mesenteric ischemia, lower lobe pneumonia, DKA, bowel perforation, cholecystitis, sera docholithiasis, ascending cholangitis, hepatic abscess, pancreatitis, PUD, gastritis, GERD, splenic rupture, diverticulitis, UTI, pyelonephritis, nephrolithiasis, appendicitis, constipation, , ectopic , PID, ovarian torsion or tubo-ovarian abscess. Patient was nontoxic, non-ill-ap pearing prior to discharge. PRESCRIPTIONS: Fontana, ibuprofen, Zofran The patient has been prescribed Fontana during this encounter. The patient has been warned about the use of narcotics. The patient should not drive or operate heavy machinery while taking this medication. The patient was also warned about the addictive properties of narcotic medications. Narcan prescription was NOT provided given the following criteria: As less than 10 tabs of Fontana 5 mg were prescribed and patient does not have a history of benzo prescriptions. DISCHARGE: At this time, patient is stable for discharge and outpatient management. I have instructed the patient to follow-up with his/her primary care physician in 1-2 days. I have instructed the patient to promptly return to the ER at any time for any new or worsening symptoms including increased pain, nausea, vomiting, diarrhea, fever, weakness or LOC. The patient and/or family expressed understanding of and agreement with this plan. All questions were answered. Home care instructions were provided. Disclaimer: Inadvertent spelling and grammatical errors are likely due to EHR/dictation software use and do not reflect on the overall quality of patient care. Also, please note that the electronic time recorded on this note does not necessarily reflect the actual time of the patient encounter. Departure Diagnosis: Primary Impression: Gallstone Cholecystitis presence: without cholecystitis Biliary obstruction: without biliary obstruction Qualified Codes: K80.20 - Calculus of gallbladder without cholecystitis without obstruction Condition: Fair Patient Instructions: Gallstones Referrals: Tobi CARLTON PATRICIA PA KASHANI, SAMUEL MD KOSARI, KAMBIZ M.D. LOMIS, THOMAS MD Additional Instructions: Follow-up with general surgeon for outpatient cholecystectomy. Call your primary care doctor TOMORROW for an appointment during the next 1-2 days.See the doctor sooner or return here if your condition worsens before your appointment time. ROYCE MARTINEZ PA-C Aug 09, 2018 04:14
[2018-08-09 04:29] VITALS: BP 135/81; PULSE 93; RESP 18
== END 2018-08-09 04:31 | disposition home or self-care (01) ==
LOC: FTE 01:35
DX: K80.20 Calculus of gallbladder without cholecystitis without obstruction (principal); J45.909 Unspecified asthma, uncomplicated
CPT/HCPCS: 36415; 76705; 80053; 81001; 81003; 81025; 83690; 85025

== ENCOUNTER → 2018-11-29 | Outpatient (CLI) | payer BC ==
[~2018-11-29] MED LIST changes: +HYDR-4011 PO; +ONDA4TAB14 PO
== END | disposition home or self-care (01) ==
LOC: LAB 10:55
PROVIDERS: ATTEND Internal Medicine
DX: M79.673 Pain in unspecified foot (principal); K80.80 Other cholelithiasis without obstruction
CPT/HCPCS: 80053; 80061; 81001; 84134; 84443; 84560; 85025

== ENCOUNTER → 2018-12-21 | Outpatient (CLI) | payer BC | END | disposition home or self-care (01) | LOC: LAB 18:18 | PROVIDERS: ATTEND Internal Medicine | DX: Z01.818 Encounter for other preprocedural examination (principal) | CPT/HCPCS: 81001; 84703; 87086 ==

== ENCOUNTER 2018-12-29 05:25 | Day surgery (SDC) | payer BC ==
--- NOTE | 2018-12-28 02:23 | PREOPHP ---
DATE OF ADMISSION: 12/29/2018 DATE OF SURGERY: 12/29/2018. CHIEF COMPLAINT: Patient with symptomatic gallstones, preop for laparoscopic cholecystectomy [address] Wood. HISTORY OF PRESENT ILLNESS: The patient is a 33-year-old female with a history of gallstone s. The patient with abdominal pain which has been increasing in frequency recently up to 2 times per week randomly after eating or drinking, can last up to 20 minutes in duration associated with some n ausea and sweatiness. No vomiting. Symptoms can be severe. Takes pain medicine to avoid ER visit. The patient denies any fever, chills, night sweats, diarrhea, chest pain, shortness of breath, cough , bright red blood per rectum, melena. There is no history of bleeding problems. The patient is kam eduled for her laparoscopic cholecystectomy 12/29/[address] Wood. PAST MEDICAL HISTORY: Gallstones, positive VIDYA. OPERATIONS: . MEDICATIONS: Oral contraceptives. ALLERGIES: NO KNOWN DRUG ALLERGIES. SOCIAL HISTORY: The patient denies any tobacco use, occasional alcohol use. She is and she is a nurse at [employer]. FAMILY HISTORY: The patient and father, mother, brother, 2 sisters, and daughter, all alive and well . REVIEW OF SYSTEMS: GENERAL: The patient denies any fever, chills, night sweats, weight change or other general complain ts. HEENT: Patient denies any headache, congestion, rhinorrhea, sore throat, or other HEENT complaints. RESPIRATORY: The patient denies any cough, wheeze, shortness of breath, other respiratory complaints . CARDIOVASCULAR: The patient denies any chest pains, palpitations, dizziness, or other cardiovascular symptoms. GASTROINTESTINAL: As noted in the HPI. GENITOURINARY: The patient denies any dysuria, frequency, or other urinary symptoms. NEUROLOGIC: The patient denies any numbness, tingling, weakness, or other focal neurologic symptoms. PHYSICAL EXAMINATION: VITAL SIGNS: Temperature 98.4, pulse 70, blood pressure 110/72. GENERAL APPEARANCE: The patient is a well-developed, well-nourished female in no acute distress. Sh e appears nontoxic. HEENT: Normocephalic, atraumatic. Sclerae anicteric. Oropharynx is clear. NECK: Supple, no adenopathy, no thyromegaly, no bruits. LUNGS: Clear to auscultation. CARDIAC: Regular rate and rhythm. ABDOMEN: Bowel sounds are present. Abdomen is soft, nontender, nondistended. EXTREMITIES: Without cyanosis, clubbing, or edema. NEUROLOGIC: The patient is alert and oriented x3 with no focal neurologic findings. IMPRESSION: Symptomatic gallstones. PLAN: 1. Patient had recent labs which have been reviewed. The patient given prescription for a serum pre gnancy test, urinalysis and urine culture. If the above okay, the patient is okay for surgery. No a spirin, nonsteroidals supplements or blood thinners prior operation. [place] p.r.n. 2. Followup to be arranged. ADDENDUM: Data reviewed. Patient medically stable to proceed with her proposed procedure. Dictated By: AYAKA MILLER/JAGDEEP Conf#: [id number] DID#: [id number]
[~2018-12-29] VITALS: Ht 154.9 cm; Wt 96.2 kg
[2018-12-29] VITALS (11 sets, daily range): BP systolic 117–136; BP diastolic 62–96; PULSE 73–98; RESP 15–23; Ht 154.9 cm; Wt 96.2 kg
[2018-12-29] MEDS ORDERED: LACTATED RINGER'S 1,000 ML IV SCH (06:30)
[2018-12-29] MEDS ORDERED: BUPIVACAINE 0.25%/EPI (SDV) 30 ML INJ ONE (06:48)
--- NOTE | 2018-12-29 07:25 | HPN ---
Date/Time of Note Date/Time of Note DATE: 12/29/18 TIME: 07:24 Interval H&P Admission Note Pt. seen H&P reviewed: No system changes LACI MARTIN MD Dec 29, 2018 07:24
--- NOTE | 2018-12-29 07:31 | PREAC ---
Date/Time of Note Date/Time of Note DATE: 12/29/18 TIME: 07:27 Anesthesia Eval and Record Evaluation Time Pre-Procedure Interview DATE: 12/29/18 TIME: 07:27 Age 33 Sex female NPO: 8 hrs Preoperative diagnosis gallstones Planned procedure lap choly Past Medical History Past Medical History: None Surgery & Anesthesia Issues No known issue Meds Anticoagulation: No Beta Mary Carmen within 24 hr: No Reason Beta Mary Carmen not given: Pt. not on B-Mary Carmen Discontinued Reported Medications Ferrous Sulfate (Iron) 325 Mg Capsule.er, 325 MG PO, CAP 01/06/17 Multivit/Min/Fol Ac/Iron/Pren* ( S*) 1 Tab Tab, 1 TAB PO DAILY, TAB 01/06/17 Discontinued Scripts Ondansetron (Ondansetron Odt) 4 Mg Tab.rapdis, 4 MG PO Q6H PRN for NAUSEA AND/OR VOMITING, #10 TAB Prov:ROYCE MARTINEZ PA-C 08/09/18 Hydrocodone/Acetaminophen ([place] 5-325 Tablet) 1 Each Tablet, 1 TAB PO Q6H PRN for PAIN, #7 TAB Prov:ROYCE MARTINEZ PA-C 08/09/18 Ibuprofen* (Motrin*) 600 Mg Tab, 600 MG PO Q6, #30 TAB Prov:ROYCE MARTINEZ PA-C 08/09/18 Tramadol HCl (Tramadol HCl) 50 Mg Tablet, 50 MG PO Q6 PRN for SEVERE PAIN LEVEL 7-10, #20 TAB Prov:ALEN LOPEZ GOVERNMENT AFFAIRS RESEARCHER 01/06/18 Ibuprofen* (Motrin*) 600 Mg Tab, 600 MG PO Q6H PRN for PAIN AND OR ELEVATED TEMP, #30 TAB Prov:ALEN LOPEZ GOVERNMENT AFFAIRS RESEARCHER 01/06/18 Ibuprofen* (Ibuprofen*) 800 Mg Tablet, 800 MG PO Q8, #30 TAB Prov:VIVIANE LEONG MD 03/05/17 Hydrocodone Bit-Acetaminophen (Hydrocodone Bit-APAP) 5-325MG Tablet, 1 TAB PO Q4H PRN for PAIN, #30 TAB Prov:VIVIANE LEONG MD 03/05/17 Current Medications Lactated Ringer's 1,000 ml @ 25 mls/hr Q24H IV ; Start 12/29/18 at 06:30 Meds reviewed: Yes Allergies Coded Allergies: No Known Allergy (Unverified , 12/29/18) Allergies Reviewed: Yes Labs/Studies Labs Reviewed: Reviewed by anesthesiologist Result Diagram: 12/29/1860412/29/18604 Laboratory Tests 12/29/18 06:05 test: N/A Pre-procedure Exam Last vitals Vital Signs Date Temp Pulse Resp B/P (MAP) Pulse Ox O2 O2 Flow FiO2 Time Delivery Rate 12/29/18 97.5 73 18 126/62 98 Room Air 06:19 (83) Airway: Adequate mouth opening, Adequate thyromental dist Mallampati: Mallampati II Teeth: Normal Lung: Normal Heart: Normal ASA Physical Status ASA physical status: 2 Emergency: None Pre-operative Attestations Prior to commencing anesthesia and surgery, the patient was re-evaluated, there was verification of: *The patient's identity *The results of appropriate recent lab work and preoperative vital signs *The above evaluation not changing prior to induction *Anesthetic plan, risk benefits, alternative and complications discussed with pa tient/family; questions answered; patient/family understands, accepts and wishes to proceed. CAM OWENS DO Dec 29, 2018 07:31
[2018-12-29] MEDS ORDERED: MIDAZOLAM 1 MG/ML 2 ML INJ ONE (07:37)
[2018-12-29] MEDS ORDERED: KETAMINE (50 MG/ML) 10 ML VIAL ONE (07:37)
[2018-12-29] MEDS ORDERED: PROPOFOL 20 ML ONE (07:40)
[2018-12-29] MEDS ORDERED: LIDOCAINE 1% (MDV) 20 ML INJ ONE (07:40)
[2018-12-29] MEDS ORDERED: DEXAMETHASONE 4 MG/ML 5 ML INJ ONE ×2 (07:49→08:05)
[2018-12-29] MEDS ORDERED: ROPIVACAINE 0.5 % 30 ML VIAL ONE (07:49)
[2018-12-29] MEDS ORDERED: CEFAZOLIN 1 GM INJ ONE (08:01)
[2018-12-29] MEDS ORDERED: FAMOTIDINE 20 MG INJ ONE (08:05)
[2018-12-29] MEDS ORDERED: ONDANSETRON 4 MG INJ ONE (08:05)
[2018-12-29] MEDS ORDERED: ACETAMINOPHEN 1000MG/100ML IV 100 ML IVPB ONE (08:30)
--- NOTE | 2018-12-29 08:43 | OPR ---
Date/Time of Note Date/Time of Note DATE: 12/29/18 TIME: 08:38 Operative Report Procedure Date: Dec 29, 2018 Preoperative Diagnosis Gallstones without obstruction Postoperative Diagnosis Gallstones without obstruction Operation/Procedure Performed Laparoscopic cholecystectomy Surgeon Laci Martin MD Auto Rebuilder None Anesthesia Type: general Anesthesiologist: CAM OWENS DO Estimated Blood Loss: minimal Transfusion none Specimen Gallbladder Grafts/Implants none Tubes/Drains None Complications none Pt Condition Post Procedure: stable Disposition: PACU Indications Symptomatic cholelithiasis Procedure Description After satisfactory general endotracheal anesthesia was achieved, the abdomen was prepped and draped in the usual fashion. The abdomen was insufflated with carbon dioxide through an umbilical Veress needle to 15 mmHg pressure. The Veress needle was removed and the umbilical incision extended to 5 mm through which a 5 mm trocar was placed. A 5 mm 0 degree lens was placed. Laparoscopy showed a distended gallbladder and was otherwise unremarkable. Under direct visualization a 12 mm epigastric trocar was placed as well as 2 more 5 mm right lateral abdominal trochars. The dome of the gallbladder was grasped and retracted superiorly, and Gutierres's pouch was grasped and retracted inferolaterally. The hepatoduodenal ligament was carefully dissected between the gallbladder and the well-visualized mariaelena hepatis. The cystic duct was then triply hemoclipped and divided high at the junction of the gallbladder and the cystic duct. The cystic artery was identified immediately posteriorly. This was triply hemoclipped and divided. The peritoneal attachments of the gallbladder was divided over clip. The gallbladder was then dissected from below using electrocautery dissection and placed fully intact into an Endo Catch removed by the epigastric route. Hemostasis of the liver bed was total and irrigant returned clear. The abdomen was then desufflated and all trochars were removed. The fascia of the epigastrium was closed with 2 sutures of 0 Vicryl. The skin punctures were then closed with lacey sponge and needle counts were reported as correct x2. LACI MARTIN MD Dec 29, 2018 08:43
[2018-12-29] MEDS ORDERED: HYDROmorphONE 1 MG/ML SYG ONE (08:50)
--- NOTE | 2018-12-29 08:57 | PAC ---
Date/Time of Note Date/Time of Note DATE: 12/29/18 TIME: 08:56 Post-Anesthesia Notes Post-Anesthesia Note Last documented vital signs Vital Signs Date Temp Pulse Resp B/P (MAP) Pulse Ox O2 O2 Flow FiO2 Time Delivery Rate 12/29/18 98 72 15 130/65 100 m 0856 Activity: WNL Respiratory function: WNL Cardiovascular function: WNL Mental status: Baseline Pain reasonably controlled: Yes Hydration appropriate: Yes Nausea/Vomiting absent: Yes CAM OWENS DO Dec 29, 2018 08:57
[2018-12-29] MEDS ORDERED: METOCLOPRAMIDE 10 MG INJ IV PRN (09:00)
[2018-12-29] MEDS ORDERED: hydrALAzine 20 MG INJ IV PRN (09:00)
[2018-12-29] MEDS ORDERED: HYDROmorphONE 1 MG/5 ML IV SYRINGE IV PRN ×2 (09:00)
[2018-12-29] MEDS ORDERED: DIPHENHYDRAMINE 50 MG INJ IV PRN (09:00)
[2018-12-29] MEDS ORDERED: ALBUTEROL 0.083% (NEB) 2.5 MG/3 ML AMP HHN PRN (09:00)
[2018-12-29] MEDS ORDERED: ONDANSETRON 4 MG INJ IV PRN ×2 (09:00)
[2018-12-29] MEDS ORDERED: MEPERIDINE 25 MG INJ IV PRN (09:00)
[2018-12-29] MEDS ORDERED: morphine 2 MG INJ IV PRN (09:00)
[2018-12-29] MEDS ORDERED: OXYCODONE/ACETAMINOPHEN (5/325) TAB PO PRN ×2 (09:00)
[2018-12-29] MEDS ORDERED: MIDAZOLAM 1 MG/ML 2 ML INJ IV PRN (09:00)
[2018-12-29] MEDS ORDERED: FENTAnyl 50 MCG/ML VIAL IV PRN ×2 (09:00)
[2018-12-29] MEDS ORDERED: KETOROLAC 30 MG INJ IV PRN (09:00)
[2018-12-29] MEDS ORDERED: EPHEDrine 25 MG/5 ML SYG IV PRN (09:00)
== END 2018-12-29 10:04 | disposition home or self-care (01) ==
LOC: EEVIPCON 05:25 → SDS 05:25
PROVIDERS: ATTEND Surgery
DX: K80.10 Calculus of gallbladder with chronic cholecystitis without obstruction (principal)
CPT/HCPCS: 47562; 80053; 85025; J0131; J0690; J1100; J1170; J1885; J2175; J2250; J2405; J2795; J3010; 88304